=== PATIENT | female | born 1955 | race Caucasian/White ===

== ENCOUNTER 2023-07-02 08:23 | Outpatient (RCR) | payer OTHER, SELFPAY | END 2023-07-02 23:59 | disposition home or self-care (01) | LOC: RPT 08:23 | PROVIDERS: ATTENDING PHYSICIAN Orthopaedic Surgery; FAMILY PHYSICIAN Family Medicine | DX: M16.11 Unilateral primary osteoarthritis, right hip (principal); Z73.6 Limitation of activities due to disability; M54.50 Low back pain, unspecified | CPT/HCPCS: 97110; 97162 ==

== ENCOUNTER 2023-07-30 14:49 | Outpatient (RCR) | payer OTHER, SELFPAY | END 2023-07-30 23:59 | disposition home or self-care (01) | LOC: RPT 14:49 | PROVIDERS: ATTENDING PHYSICIAN Orthopaedic Surgery; FAMILY PHYSICIAN Family Medicine | DX: M16.11 Unilateral primary osteoarthritis, right hip (principal); Z73.6 Limitation of activities due to disability | CPT/HCPCS: 97010; 97110; 97140 ==

== ENCOUNTER 2023-08-13 14:10 | Outpatient (RCR) | payer OTHER, SELFPAY | END 2023-08-13 23:59 | disposition home or self-care (01) | LOC: RPT 14:10 | PROVIDERS: ATTENDING PHYSICIAN Orthopaedic Surgery; FAMILY PHYSICIAN Family Medicine | DX: M16.11 Unilateral primary osteoarthritis, right hip (principal); Z73.6 Limitation of activities due to disability | CPT/HCPCS: 97010; 97110 ==

== ENCOUNTER 2023-09-16 14:18 | Outpatient (RCR) | payer OTHER, SELFPAY | END 2023-09-16 23:59 | disposition home or self-care (01) | LOC: RPT 14:18 | PROVIDERS: ATTENDING PHYSICIAN Orthopaedic Surgery; FAMILY PHYSICIAN Family Medicine | DX: M16.11 Unilateral primary osteoarthritis, right hip (principal); Z73.6 Limitation of activities due to disability | CPT/HCPCS: 97010; 97110; 97140 ==

== ENCOUNTER → 2023-09-20 13:58 | Outpatient (REF) | payer OTHER, SELFPAY | LOC: RAD 13:58 | PROVIDERS: ATTENDING PHYSICIAN Student in an Organized Health Care Education/Training Program; FAMILY PHYSICIAN Physician Assistant Medical | DX: M79.672 Pain in left foot (principal); M79.671 Pain in right foot | CPT/HCPCS: 73630 ==

== ENCOUNTER → 2023-12-04 18:23 | Outpatient (REF) | payer OTHER, SELFPAY | LOC: WDC 18:23 | PROVIDERS: ATTENDING PHYSICIAN Obstetrics & Gynecology Gynecology; FAMILY PHYSICIAN Family Medicine | DX: Z12.31 Encounter for screening mammogram for malignant neoplasm of breast (principal) | CPT/HCPCS: 77063; 77067 ==

== ENCOUNTER → 2024-12-07 08:28 | Outpatient (REF) | payer OTHER, SELFPAY | LOC: RAD 08:28 | PROVIDERS: ATTENDING PHYSICIAN Specialist; FAMILY PHYSICIAN Physician Assistant Medical | DX: N20.0 Calculus of kidney (principal); N13.30 Unspecified hydronephrosis | CPT/HCPCS: 76775 ==

== ENCOUNTER → 2024-12-14 15:40 | Outpatient (REF) | payer OTHER, SELFPAY | LOC: WDC 15:40 | PROVIDERS: ATTENDING PHYSICIAN Obstetrics & Gynecology Gynecology; FAMILY PHYSICIAN Physician Assistant Medical | DX: Z12.31 Encounter for screening mammogram for malignant neoplasm of breast (principal) | CPT/HCPCS: 77063; 77067 ==

== ENCOUNTER → 2025-04-21 16:38 | Outpatient (REF) | payer OTHER, SELFPAY | LOC: PAVMRI 16:38 | PROVIDERS: ATTENDING PHYSICIAN Chiropractor; FAMILY PHYSICIAN Physician Assistant Medical | DX: M48.061 Spinal stenosis, lumbar region without neurogenic claudication (principal); M51.26 Other intervertebral disc displacement, lumbar region | CPT/HCPCS: 72148 ==

== ENCOUNTER → 2025-05-04 18:45 | Outpatient (REF) | payer OTHER, SELFPAY | LOC: RAD 18:45 | PROVIDERS: ATTENDING PHYSICIAN Physician Assistant; FAMILY PHYSICIAN Physician Assistant Medical | DX: M79.646 Pain in unspecified finger(s) (principal); R29.898 Other symptoms and signs involving the musculoskeletal system | CPT/HCPCS: 73130 ==

== ENCOUNTER 2025-06-04 00:10 | Emergency (ER) | payer OTHER, MEDICARE, SELFPAY ==
[2025-06-04 01:35] LABS: Hematocrit 34.5 % (37.0-47.0); Hemoglobin 11.9 g/dL (12.0-16.0); Mean Corp Hgb Conc. 34.5 g/dL (33.0-37.0); Mean Corpuscular Volume 90.3 fL (81.0-99.0); Nucleated Red Blood Cells % 0 %; Platelet Count 288 10^3/uL (130-400); Red Cell Dist. Width 12.2 % (11.5-14.5)
[2025-06-04 01:57] LABS: ALT (SGPT) 31 U/L (0-35); AST (SGOT) 45 U/L (14-36); Albumin 4.5 g/dl (3.5-5.0); Alkaline Phosphatase 115 U/L (38-126); Blood Urea Nitrogen 12 mg/dl (7-17); Calcium 10.2 mg/dl (8.4-10.2); Carbon Dioxide 28 mmol/L (22-30); Chloride 98 mmol/L (98-107); Glucose 105 mg/dl (70-99); Potassium 4.4 mmol/L (3.5-5.1); Sodium 132 mmol/L (135-145); Total Protein 7.9 g/dl (6.3-8.2); eGFR > 60.00
[2025-06-04 01:59] LABS: C-Reactive Protein 47.60 mg/L (0.0-10.00)
--- NOTE | 2025-06-04 02:10 | ED.GENMED ---
History of Present Illness
General
Chief Complaint: Post Operative Problem(s)
Source: patient and family
Exam Limitations: none
Time Seen by Provider: 06/04/25 00:45
Nursing documentation reviewed up to this point in time: agreed with
History of Present Illness
History of Present Illness:
Note:
CHIEF COMPLAINT(S)
Swelling of the hand.
HISTORY OF PRESENT ILLNESS
The patient is a 70-year-old female presenting with swelling in the hand. The swelling began a few days ago, initially increasing, then decreasing, and has recently worsened. The patient noted the swelling starting around dinner time and reports
that this is the worst its been. She denies any fever. The patient has a history of osteoporosis and is currently taking Linzess for irritable bowel syndrome. She has taken Amoxicillin from her cabinet due to the situation occurring over the holiday
period, and a recommended Keflex prescription was not accessible as the pharmacy was closed. The patient has mentioned using Betadine for soaking her hand and reports taking Tylenol initially followed by Advil, and more recently, Aleve in
combination with Tylenol for symptom relief.
PAST MEDICAL AND SURIGICAL HISTORY
Osteoporosis.
MEDICATIONS
Linzess for irritable bowel syndrome; Amoxicillin; Tylenol; Advil; Aleve.
PHYSICAL EXAM
General: Alert, no acute distress.
Skin: Warm, dry.
Head: Normocephalic, atraumatic.
Neck: Supple, trachea midline.
Eye Ears, nose, mouth and throat: Oral mucosa moist.
Cardiovascular: Normal peripheral perfusion, No edema.
Respiratory: Respirations are non-labored.
Gastrointestinal: Abdomen nondistended.
Back: Normal range of motion, Normal alignment.
Musculoskeletal: Normal range of motion, normal strength.
Neurological: Alert and oriented to person, place, time, and situation, No focal neurological deficit observed.
Psychiatric: Cooperative, appropriate mood & affect.
PLAN
The plan involves a continuation with the prescribed Keflex once it is available from the pharmacy, and continuation of Betadine hand soaks as instructed. The patient should monitor the swelling and return if symptoms worsen or if new symptoms
develop.
DIFFERENTIAL DIAGNOSIS
The Differential Diagnosis includes, in no particular order and is not limited to:
1. Cellulitis
2. Lymphedema
3. Insect bite or sting
4. Allergic reaction
5. Deep vein thrombosis
6. Gout
7. Osteomyelitis
8. Trauma or injury
9. Arthritis exacerbation
10. Drug-induced edema
Disposition:
SUMMARY OF ENCOUNTER
The patient, a 70-year-old female, presented with a post-operative wound infection of the hand. She has been in contact with the orthopedic surgeons office, who called in a prescription for cephalexin. However, due to the holiday, she was unable to
fill the prescription and came to the emergency department. I spoke with Dr. Joesph Guerra from orthopedics, who recommended a dose of cefazolin and discharge home. The patient agreed with this plan.
DISPOSITION
Discharge.
ASSESSMENT
Post-operative wound infection of the hand.
EMERGENCY TREATMENTS ADMINISTERED
Administered one dose of cefazolin.
MANAGEMENT OF THE PATIENTS CARE WAS DISCUSSED WITH
Dr. Joesph Guerra, Orthopedics.
PLAN
Administer cefazolin as per orthopedic recommendation and discharge home with instructions to fill cephalexin prescription as soon as possible.
PATIENT EDUCATION AND COUNSELING
The patient was informed about the importance of filling and taking the cephalexin prescription to manage the infection and advised to monitor for signs of worsening infection, such as increased redness, pain, or swelling.
FOLLOW-UP INSTRUCTIONS
Follow up with the orthopedic surgeon as soon as possible.
MEDICATION RECONCILIATION
Prescription for cephalexin to be filled by the patient. One dose of cefazolin administered in the emergency department.
MEDICAL DECISION MAKING
- Number and Complexity of Problems Addressed: Chronic conditions affecting care: None reported. DDX includes Post-operative wound infection.
- Data:
Category 3: Management discussed with Dr. Joesph Guerra, Orthopedics.
- Risk: Prescription medication was considered, and cefazolin was administered after consultation with orthopedics. Patient to fill prescription for cephalexin.
DIAGNOSIS
Post-operative wound infection of the hand (ICD-10 Code: T81.4XXA).
Phy Exam
Physical Exam
Physical Exam:
.
Course
Orders/Labs/Results
Orders:
Orders
06/04/25 01:23
CRP [C-Reactive Protein] Urgent
Complete Blood Count/With Diff Urgent
Comprehensive Metabolic Panel Urgent
Sed Rate [Erythrocyte Sed Rate] Urgent
06/04/25 01:59
Wound Culture [Wound/Abscess/Other Culture] Urgent
TAMICA Source: Finger
Specimen Description: Left
Date Specimen was Collected: 06/04/25
Time Specimen was Collected: 01:58
06/04/25 02:09
CeFAZolin 2 GRAM [Ancef] 2 grams in 10 ml IV NOW
06/04/25 03:04
Hand, Left 3 View [CR Hand - Left Min 3 Views] Urgent
Comment:
Reason For Exam: swelling, post op
Abnormal Lab Results
06/04/25
01:23
RBC 3.82 L 10^6/uL
(4.20-5.40)
Hgb 11.9 L g/dL
(12.0-16.0)
Hct 34.5 L %
(37.0-47.0)
MCH 31.2 H pg
(27.0-31.0)
Absolute Monos (auto) 0.8 H 10^3/uL
(0.1-0.6)
Lymphocytes % 16.9 L %
(20.5-51.1)
Monocytes % 11.7 H %
(1.7-9.3)
ESR 50 H mm/hour
(0-20)
Sodium 132 L mmol/L
(135-145)
Glucose 105 H mg/dl
(70-99)
AST 45 H U/L
(14-36)
C-Reactive Protein 47.60 H mg/L
(0.0-10.00)
06/04/25 01:23
06/04/25 01:23
Vital Signs
Initial and Last Documented VS:
Initial Vital Signs
Temp Pulse Resp Pulse Ox
98.5 F 87 18 98
06/04/25 00:36 06/04/25 00:36 06/04/25 00:36 06/04/25 00:36
Last Documented Vital Signs
Temp Pulse Resp Pulse Ox
98.5 F 87 18 98
06/04/25 00:36 06/04/25 00:36 06/04/25 00:36 06/04/25 02:10
*Pulse Oximetry
SaO2: 98
Oxygen Mode of Delivery: Room air
Patient hypoxic: no
*Critical Care Note
Total Time (30-74mins, 75-104mins- exclusive of procedures): Not Applicable
Update Note
Update Note:
Spoke with Dr. Joesph Garland, orthopedics who recommended giving a dose of Ancef and discharge home. Patient has a prescription for Keflex. The office will follow-up with her.
ED Attending Note
-
Portions of this chart may have been created with voice recognition software.� Occasional wrong word or��sound alike� substitutions may have occurred due to the inherent limitations of voice recognition software.
Discharge Plan
Departure
Patient Disposition: Home (Routine Discharge)
Date of Disposition: 06/04/25
Time of Disposition: 03:04
Patient with high blood pressure during this ER visit?: Yes
Condition: Good
Discharge Problem:
Postoperative wound infection
Instructions: Wound Care (DC), BLOOD PRESSURE
Referrals:
Dora Shah PA-C [Family Provider, Family Practice]
Morgan Leung MD [Active, Orthopedics] - Next open appointment
Activity Restrictions/Additional Instructions:
Please fill the Keflex prescription previously prescribed to you. Take as directed. Follow-up with Dr. Leung's office tomorrow
Thank You for choosing [facility] [address].
It was a pleasure meeting you and taking part in your care. We hope for your continued healing and wellness.
Please read discharge instructions in their entirety. However, they are for general education and may not describe your exact diagnosis at discharge. Information on your ER visit and medical conditions were discussed with you along with appropriate
follow up information...
If indicated, please take your medications as instructed and indicated on discharge paperwork.
Please schedule a follow up appointment as directed. Call to schedule an appointment
Please return to the emergency department with ANY change in, persisting, or worsening of symptoms. If any of your symptoms do not improve, or persist, or become more severe within 6-12 hours, please return to the emergency department for further
care.
Please return to the emergency department if you develop a headache, neck pain/stiffness, fever greater than 100.4F, chest pain, shortness of breath, persistent nausea, vomiting, slurred speech, difficulty walking, numbness/tingling, weakness, signs
of infection or any other symptoms that are worrisome to you.
If you have any questions or concerns please do not hesitate to call the Hospital at .
Interventions
Interventions:
*General Assessment Last Done: 06/04/25 04:39
*Neglect/Abuse Screening Last Done: 06/04/25 04:39
*ED COVID-19 Vaccine History Last Done: 06/04/25 04:39
*ED Influenza Vaccine History Last Done: 06/04/25 04:39
*Risk Screen - Suicide (C-SSRS) Last Done: 06/04/25 00:36
*Nursing Disposition Last Done: 06/04/25 04:44
ED-Skin Assessment Last Done: 06/04/25 01:29
Discharge Date and Time
Discharge Date/Time: 06/04/25 04:44
Print Language: MACEDONIAN
[2025-06-04] MEDS: ANCEF 10 IV (02:30)
== END 2025-06-04 04:44 | disposition home or self-care (01) ==
LOC: EMR 00:10
PROVIDERS: EMERGENCY PHYSICIAN Student in an Organized Health Care Education/Training Program; FAMILY PHYSICIAN Physician Assistant Medical
DX: T81.41XA Infection following a procedure, superficial incisional surgical site, initial encounter (principal); M81.0 Age-related osteoporosis without current pathological fracture; K58.9 Irritable bowel syndrome, unspecified
CPT/HCPCS: 99284; 96374; 73130; 80053; 85025; 85652; 86140; 87070; 87147; 87186; 87205